=== PATIENT | female | born 1995 | race African-American/Black ===

== ENCOUNTER 2016-11-07 12:19 | Emergency (ER) | payer OTHER ==
[~2016-11-07] VITALS: Ht 157.5 cm; Wt 61.2 kg
[2016-11-07 12:20] VITALS: BP 127/76
[2016-11-07] MEDS ORDERED: PENICILLIN V P500 MG PO (12:47)
[2016-11-07] MEDS ORDERED: MOBIC15 MG PO (12:47)
== END 2016-11-07 13:01 | disposition home or self-care (01) ==
LOC: ER 12:19
DX: K04.01 Reversible pulpitis (principal); K08.89 Other specified disorders of teeth and supporting structures

== ENCOUNTER 2017-10-22 19:20 | Emergency (ER) | payer OTHER ==
[~2017-10-22] VITALS: Ht 160 cm; Wt 59.0 kg
[~2017-10-22 19:20] MED LIST: IBUPROFEN 800800 M1 PO; MOBIC15 MG PO; PENICILLIN V P500 MG PO; PENICILLIN VK500 M1 PO; TRAMADOL 50 MG50 MG PO
[2017-10-22 19:39] LABS: URINE BILIRUBIN 1+ (Negative); URINE BLOOD 3+ (Negative); URINE CLARITY CLOUDY; URINE COLOR BROWN; URINE GLUCOSE-RANDOM* NEGATIVE (Negative); URINE KETONES NEGATIVE (Negative); URINE LEUKOCYTES 1+ (Negative); URINE NITRITE NEGATIVE (Negative); URINE PROTEIN (DIPSTICK) 3+ (Negative); URINE SPECIFIC GRAVITY >= 1.030 (1.005-1.035); URINE UROBILINOGEN 0.2 E.U./dl (0.2-1.0)
[2017-10-22 19:42] LABS: ICTOTEST (BILI CONFIRMATORY) Positive (Negative)
[2017-10-22 19:45] LABS: URINE RBC >20 Many /HPF (0-2)
[2017-10-22 19:46] LABS: SQUAMOUS 0-3 Few /LPF (0-3)
[2017-10-22 19:47] LABS: MUCUS 4-6 Moderate strn/LPF (None Seen)
[2017-10-22 19:49] LABS: CASTS None Seen /LPF (None Seen)
[2017-10-22 19:51] LABS: BACTERIA 1-9 Few /HPF (None Seen); CRYSTALS None Seen /LPF (None Seen)
[2017-10-22] MEDS ORDERED: MACROBID 100 M100 M1 PO (20:40)
[2017-10-22] MEDS ORDERED: PHENAZOPYRIDIN200 M2 PO (20:40)
== END 2017-10-22 20:54 | disposition home or self-care (01) ==
LOC: ER 19:20
PROVIDERS: Physician Assistant
DX: N39.0 Urinary tract infection, site not specified (principal)

== ENCOUNTER 2018-04-13 18:29 | Emergency (ER) | payer OTHER ==
[~2018-04-13] VITALS: Ht 157.5 cm; Wt 65.8 kg
[~2018-04-13 18:29] MED LIST changes: +MACROBID 100 M100 M1 PO; +PHENAZOPYRIDIN200 M2 PO
[2018-04-13] MEDS ORDERED: TRAMADOL 50 MG50 MG PO (20:02)
[2018-04-13] MEDS ORDERED: NAPROSYN500 MG PO (20:02)
[2018-04-13 20:19] VITALS: BP 122/54
== END 2018-04-13 20:21 | disposition home or self-care (01) ==
LOC: ER 18:29
DX: S43.101A Unspecified dislocation of right acromioclavicular joint, initial encounter (principal); W18.39XA Other fall on same level, initial encounter; Y92.89 Other specified places as the place of occurrence of the external cause; Y93.89 Activity, other specified; Y99.8 Other external cause status

== ENCOUNTER 2018-06-26 18:46 | Emergency (ER) | payer OTHER ==
[~2018-06-26] VITALS: Ht 157.5 cm; Wt 68.0 kg
[~2018-06-26 18:46] MED LIST changes: +NAPROSYN500 MG PO
[2018-06-26] MEDS ORDERED: PENICILLIN V P500 MG PO (19:56)
[2018-06-26] MEDS ORDERED: MOBIC15 MG PO (19:56)
[2018-06-26 21:02] VITALS: BP 108/63
== END 2018-06-26 21:03 | disposition home or self-care (01) ==
LOC: ER 18:46
DX: K02.9 Dental caries, unspecified (principal)

== ENCOUNTER 2018-10-30 15:12 | Emergency (ER) | payer OTHER ==
[~2018-10-30] VITALS: Ht 157.5 cm; Wt 69.0 kg
[2018-10-30] MEDS ORDERED: PRENATAL 19 TA1 EACH PO (15:30)
[2018-10-30 15:36] LABS: URINE CLARITY CLEAR; URINE COLOR YELLOW; URINE GLUCOSE-RANDOM* NEGATIVE (Negative); URINE PROTEIN (DIPSTICK) NEGATIVE (Negative); URINE SPECIFIC GRAVITY 1.025 (1.005-1.035)
[2018-10-30 15:37] LABS: URINE BILIRUBIN NEGATIVE (Negative); URINE BLOOD NEGATIVE (Negative); URINE KETONES 2+ (Negative); URINE LEUKOCYTES-REFLEX NEGATIVE (Negative); URINE NITRITE-REFLEX NEGATIVE (Negative); URINE UROBILINOGEN 0.2 E.U./dl (0.2-1.0)
[2018-10-30 15:43] LABS: ABSOLUTE NEUTROPHILS 5.9 thou/uL (1.4-8.2); BASOPHILS 0.2 % (0.0-2.0); EOSINOPHILS 0.2 % (0.0-3.0); HEMATOCRIT 35.2 % (37.0-47.0); HEMOGLOBIN 11.7 gm/dL (12.0-15.0); LYMPHOCYTES 5.8 % (24.0-44.0); MCH 27.5 pg (26.0-34.0); MCHC 33.3 g/dL (28.0-37.0); MCV 82.5 fL (80.0-100.0); MONOCYTES 4.3 % (1.0-8.0); PLATELET COUNT 230 thou/uL (150-400); POLYS 89.5 % (36.0-66.0); RBC 4.26 mil/uL (4.20-5.00); RDW 18.1 % (10.5-14.5); WBC 6.6 thou/uL (4.0-11.0)
[2018-10-30 16:01] LABS: CALCIUM 8.5 mg/dL (8.5-10.1); CREATININE 0.6 mg/dL (0.6-1.0); POTASSIUM 3.4 mmol/L (3.5-5.1)
[2018-10-30 16:07] LABS: ALBUMIN 3.2 g/dL (3.4-5.0); TOTAL BILIRUBIN 0.3 mg/dL (<0.1-1.0); TOTAL PROTEIN 7.7 g/dL (6.4-8.2)
[2018-10-30 16:59] VITALS: BP 91/53
[2018-10-30] MEDS ORDERED: ONDANSETRON HCL4 M2 PO (17:04)
== END 2018-10-30 17:13 | disposition home or self-care (01) ==
LOC: ER 15:12
PROVIDERS: Physician Assistant
DX: O21.8 Other vomiting complicating pregnancy (principal); Z3A.20 20 weeks gestation of pregnancy

== ENCOUNTER 2020-05-03 18:18 | Emergency (ER) | payer OTHER ==
[~2020-05-03] VITALS: Ht 157.5 cm; Wt 72.6 kg
[~2020-05-03 18:18] MED LIST changes: +ONDANSETRON HCL4 M2 PO; +PRENATAL 19 TA1 EACH PO
[2020-05-03 18:53] LABS: URINE BILIRUBIN NEGATIVE (Negative); URINE BLOOD NEGATIVE (Negative); URINE CLARITY CLEAR; URINE COLOR YELLOW; URINE GLUCOSE-RANDOM* NEGATIVE (Negative); URINE KETONES NEGATIVE (Negative); URINE LEUKOCYTES-REFLEX NEGATIVE (Negative); URINE NITRITE-REFLEX NEGATIVE (Negative); URINE PROTEIN (DIPSTICK) NEGATIVE (Negative); URINE UROBILINOGEN 0.2 E.U./dl (0.2-1.0)
[2020-05-03 19:11] LABS: ABSOLUTE NEUTROPHILS 3.2 thou/uL (1.4-8.2); BASOPHILS 0.5 % (0.0-2.0); EOSINOPHILS 0.5 % (0.0-3.0); HEMATOCRIT 31.4 % (37.0-47.0); HEMOGLOBIN 10.2 gm/dL (12.0-15.0); MCH 25.4 pg (26.0-34.0); MCHC 32.4 g/dL (28.0-37.0); MCV 78.4 fL (80.0-100.0); MONOCYTES 8.8 % (1.0-8.0); PLATELET COUNT 275 thou/uL (150-400); POLYS 68.2 % (36.0-66.0); RDW 16.8 % (10.5-14.5); WBC 4.8 thou/uL (4.0-11.0)
[2020-05-03 19:25] LABS: CALCIUM 8.7 mg/dL (8.5-10.1); CREATININE 0.7 mg/dL (0.6-1.0); POTASSIUM 3.6 mmol/L (3.5-5.1)
[2020-05-03 19:31] LABS: ALBUMIN 3.5 g/dL (3.4-5.0); TOTAL BILIRUBIN 0.2 mg/dL (0.2-1.0); TOTAL PROTEIN 7.6 g/dL (6.4-8.2)
[2020-05-04 01:23] VITALS: BP 112/74
== END 2020-05-04 01:29 | disposition home or self-care (01) ==
LOC: ER 18:18
PROVIDERS: Emergency Medicine
DX: O26.891 Other specified pregnancy related conditions, first trimester (principal); R10.2 Pelvic and perineal pain; Z79.899 Other long term (current) drug therapy; Z3A.01 Less than 8 weeks gestation of pregnancy